=== PATIENT | female | born 1950 | race Caucasian/White ===

== ENCOUNTER → 2020-11-27 | Outpatient (CLI) | payer MEDICARE, OTHER ==
[~2020-11-27] MED LIST: ASPIRIN81 MG PO; BIOTIN5 M1 PO; CINNAMON500 MG PO; IMDUR ER TAB 3030 MG PO; LEVOTHYROXINE100 MCG PO; LIPITOR TAB 1010 MG PO; LISINOPRIL5 MG PO; VITAMIN B-12250 MCG PO; VITAMIN D 40400 UNIT; VITAMIN D 40400 UNIT PO
[2020-11-27 09:25] LABS: HEMOGLOBIN 11.2 gm/dl (12.3-15.3); RED BLOOD COUNT 3.95 M/UL (4.00-5.10); WHITE BLOOD COUNT 3.3 K/UL (4.5-11.0)
[2020-11-28 11:14] LABS: CREATININE, URINE 13.8 mg/dL (Not Estab.)
== END ==
LOC: LAB 09:00
PROVIDERS: Internal Medicine Nephrology
DX: N18.4 Chronic kidney disease, stage 4 (severe) (principal); D63.1 Anemia in chronic kidney disease
CPT/HCPCS: 36415; 80053; 82043; 82570; 82728; 83540; 83550; 84156; 85027

== ENCOUNTER → 2020-12-04 | Outpatient (CLI) | payer MEDICARE, OTHER | LOC: EROP 08:14 | DX: Z01.812 Encounter for preprocedural laboratory examination (principal); Z11.52 Encounter for screening for COVID-19 | CPT/HCPCS: U0003 ==

== ENCOUNTER → 2021-03-05 | Outpatient (CLI) | payer MEDICARE ==
[2021-03-05 10:37] LABS: HEMOGLOBIN 10.6 gm/dl (12.3-15.3); RED BLOOD COUNT 3.83 M/UL (4.00-5.10); WHITE BLOOD COUNT 2.7 K/UL (4.5-11.0)
[2021-03-06 13:14] LABS: CREATININE, URINE <4.2 mg/dL (Not Estab.)
== END ==
LOC: LAB 09:27
PROVIDERS: Internal Medicine Nephrology
DX: N18.4 Chronic kidney disease, stage 4 (severe) (principal); D50.9 Iron deficiency anemia, unspecified
CPT/HCPCS: 36415; 80053; 82043; 82570; 82728; 83540; 83550; 84156; 85027

== ENCOUNTER → 2021-03-10 | Outpatient (CLI) | payer MEDICARE | LOC: US 07:56 | DX: Z86.19 Personal history of other infectious and parasitic diseases (principal); R93.2 Abnormal findings on diagnostic imaging of liver and biliary tract; N26.1 Atrophy of kidney (terminal) | CPT/HCPCS: 76700 ==

== ENCOUNTER → 2021-03-25 | Outpatient (CLI) | payer MEDICARE ==
[~2021-03-25] VITALS: Ht 157.5 cm; Wt 94.8 kg
== END ==
LOC: OPSV 11:20
DX: D50.9 Iron deficiency anemia, unspecified (principal)
CPT/HCPCS: 96365; J1756

== ENCOUNTER → 2021-04-01 | Outpatient (CLI) | payer MEDICARE ==
[~2021-04-01] VITALS: Ht 157.5 cm; Wt 94.8 kg
== END ==
LOC: OPSV 11:14
DX: D50.9 Iron deficiency anemia, unspecified (principal)
CPT/HCPCS: 96365; J1756

== ENCOUNTER → 2021-04-08 | Outpatient (CLI) | payer MEDICARE ==
[~2021-04-08] VITALS: Ht 157.5 cm; Wt 94.8 kg
== END ==
LOC: OPSV 10:00
PROVIDERS: Internal Medicine Nephrology
DX: N18.4 Chronic kidney disease, stage 4 (severe) (principal); D63.1 Anemia in chronic kidney disease; D50.9 Iron deficiency anemia, unspecified
CPT/HCPCS: 80053; 96365; J1756

== ENCOUNTER → 2021-06-05 | Outpatient (CLI) | payer MEDICARE ==
[2021-06-05 08:02] LABS: HEMOGLOBIN 11.1 gm/dl (12.3-15.3); RED BLOOD COUNT 3.99 M/UL (4.00-5.10); WHITE BLOOD COUNT 5.5 K/UL (4.5-11.0)
== END ==
LOC: LAB 07:42
PROVIDERS: Advanced Practice Midwife
DX: N18.9 Chronic kidney disease, unspecified (principal); Z85.41 Personal history of malignant neoplasm of cervix uteri
CPT/HCPCS: 36415; 80053; 85025

== ENCOUNTER → 2021-07-17 | Outpatient (CLI) | payer MEDICARE ==
[2021-07-17 08:16] LABS: HEMOGLOBIN 10.3 gm/dl (12.3-15.3); RED BLOOD COUNT 3.68 M/UL (4.00-5.10); WHITE BLOOD COUNT 4.7 K/UL (4.5-11.0)
== END ==
LOC: LAB 07:45
PROVIDERS: Internal Medicine Nephrology
DX: N18.4 Chronic kidney disease, stage 4 (severe) (principal); D50.9 Iron deficiency anemia, unspecified
CPT/HCPCS: 36415; 80053; 82043; 82570; 82728; 83540; 83550; 84156; 85027

== ENCOUNTER → 2021-08-06 | Outpatient (CLI) | payer MEDICARE | LOC: WCC 12:00 | DX: S81.801A Unspecified open wound, right lower leg, initial encounter (principal); I12.9 Hypertensive chronic kidney disease with stage 1 through stage 4 chronic kidney disease, or unspecified chronic kidney disease; N18.9 Chronic kidney disease, unspecified; E03.9 Hypothyroidism, unspecified; R60.0 Localized edema; E66.01 Morbid (severe) obesity due to excess calories; Z88.6 Allergy status to analgesic agent; Z88.1 Allergy status to other antibiotic agents; X58.XXXA Exposure to other specified factors, initial encounter | CPT/HCPCS: 87070; 87077; 87186; 87205 ==

== ENCOUNTER → 2021-08-13 | Outpatient (CLI) | payer MEDICARE | LOC: WCC 07:55 | DX: S81.801A Unspecified open wound, right lower leg, initial encounter (principal); I12.9 Hypertensive chronic kidney disease with stage 1 through stage 4 chronic kidney disease, or unspecified chronic kidney disease; N18.9 Chronic kidney disease, unspecified; E03.9 Hypothyroidism, unspecified; R60.0 Localized edema; E66.01 Morbid (severe) obesity due to excess calories ==

== ENCOUNTER → 2021-08-28 | Outpatient (CLI) | payer MEDICARE ==
[~2021-08-28] MED LIST changes: +ZOFRAN ODT 4 MG4 MG SL
== END | disposition home or self-care (01) ==
LOC: WCC 08:16
PROC: 0JBN0ZZ Excision of Right Lower Leg Subcutaneous Tissue and Fascia, Open Approach (ICD-10-PCS; principal; 2021-08-28)
DX: S81.801A Unspecified open wound, right lower leg, initial encounter (principal); I12.0 Hypertensive chronic kidney disease with stage 5 chronic kidney disease or end stage renal disease; N18.6 End stage renal disease; D63.1 Anemia in chronic kidney disease; M19.90 Unspecified osteoarthritis, unspecified site; E03.9 Hypothyroidism, unspecified; G62.9 Polyneuropathy, unspecified; E66.01 Morbid (severe) obesity due to excess calories; Z79.2 Long term (current) use of antibiotics; Z88.1 Allergy status to other antibiotic agents; Z88.6 Allergy status to analgesic agent; Z88.8 Allergy status to other drugs, medicaments and biological substances; X58.XXXA Exposure to other specified factors, initial encounter

== ENCOUNTER 2021-09-02 10:12 | Emergency (ER) | payer MEDICARE ==
[~2021-09-02] VITALS: Ht 157.5 cm; Wt 90.7 kg
[~2021-09-02 10:12] MED LIST changes: -ZOFRAN ODT 4 MG4 MG SL
[2021-09-02 11:02] LABS: HEMOGLOBIN 11.8 gm/dl (12.3-15.3); RED BLOOD COUNT 4.39 M/UL (4.00-5.10); WHITE BLOOD COUNT 3.1 K/UL (4.5-11.0)
[2021-09-02] MEDS ORDERED: ZOFRAN ODT 4 MG4 MG SL (13:06)
== END 2021-09-02 15:35 | disposition home or self-care (01) ==
LOC: ER1 10:12
PROVIDERS: Physician Assistant
DX: U07.1 COVID-19 (principal); Z23 Encounter for immunization; I12.9 Hypertensive chronic kidney disease with stage 1 through stage 4 chronic kidney disease, or unspecified chronic kidney disease; N18.4 Chronic kidney disease, stage 4 (severe); Z85.41 Personal history of malignant neoplasm of cervix uteri; Z95.5 Presence of coronary angioplasty implant and graft
CPT/HCPCS: 0240U; 71045; 80053; 83605; 85025; 87040; 93005; 96374; 99284; J2405; M0245

== ENCOUNTER → 2021-10-07 | Outpatient (CLI) | payer MEDICARE ==
[~2021-10-07] MED LIST changes: +ZOFRAN ODT 4 MG4 MG SL
== END ==
LOC: EXRD 12:36
DX: I73.9 Peripheral vascular disease, unspecified (principal); R60.0 Localized edema
CPT/HCPCS: 93925; 93970

== ENCOUNTER → 2021-10-22 | Outpatient (CLI) | payer MEDICARE | LOC: EXRD 08:42 | DX: K74.60 Unspecified cirrhosis of liver (principal); R16.1 Splenomegaly, not elsewhere classified; R93.2 Abnormal findings on diagnostic imaging of liver and biliary tract; R93.422 Abnormal radiologic findings on diagnostic imaging of left kidney; R93.421 Abnormal radiologic findings on diagnostic imaging of right kidney | CPT/HCPCS: 76700 ==

== ENCOUNTER → 2021-11-21 | Outpatient (CLI) | payer MEDICARE ==
[2021-11-21 08:57] LABS: HEMOGLOBIN 9.2 gm/dl (12.3-15.3); RED BLOOD COUNT 3.5 M/UL (4.00-5.10)
[2021-11-22 09:14] LABS: CREATININE, URINE <4.2 mg/dL (Not Estab.)
== END ==
LOC: LAB 08:12
PROVIDERS: Internal Medicine Nephrology
DX: D50.9 Iron deficiency anemia, unspecified (principal); N18.4 Chronic kidney disease, stage 4 (severe); N25.81 Secondary hyperparathyroidism of renal origin
CPT/HCPCS: 36415; 80053; 82043; 82570; 82728; 83540; 83550; 83970; 84100; 84156; 85027

== ENCOUNTER → 2021-12-22 | Outpatient (CLI) | payer MEDICARE ==
[~2021-12-22] VITALS: Ht 157.5 cm; Wt 90.3 kg
== END ==
LOC: OPSV 12:47
DX: D50.9 Iron deficiency anemia, unspecified (principal)
CPT/HCPCS: 96365; 96366; J1756

== ENCOUNTER → 2021-12-29 | Outpatient (CLI) | payer MEDICARE ==
[~2021-12-29] VITALS: Ht 157.5 cm; Wt 90.3 kg
== END ==
LOC: OPSV 07:24
DX: D50.9 Iron deficiency anemia, unspecified (principal)
CPT/HCPCS: 96365; 96366; J1756; J7030

== ENCOUNTER → 2022-02-27 | Outpatient (CLI) | payer MEDICARE ==
[2022-02-28 11:16] LABS: CREATININE, URINE <4.2 mg/dL (Not Estab.)
== END ==
LOC: LAB 10:35
PROVIDERS: Internal Medicine Nephrology
DX: N18.4 Chronic kidney disease, stage 4 (severe) (principal)
CPT/HCPCS: 36415; 80053; 82043; 82570; 84156

== ENCOUNTER → 2022-03-09 | Outpatient (CLI) | payer MEDICARE | LOC: LAB 13:01 | DX: N39.0 Urinary tract infection, site not specified (principal) | CPT/HCPCS: 81001; 87077; 87086; 87186 ==

== ENCOUNTER → 2022-06-10 | Outpatient (CLI) | payer MEDICARE | LOC: KOH-I 09:55 | DX: K74.60 Unspecified cirrhosis of liver (principal); N13.30 Unspecified hydronephrosis | CPT/HCPCS: 76700 ==